=== PATIENT | male | born 1970 | race Caucasian/White ===

== ENCOUNTER 2022-07-27 | Day surgery (SDC) | payer OTHER, SELFPAY ==
[2022-07-09 14:39] VITALS: BMI 28.1
[2022-07-27 11:59] VITALS: BP 114/74; PULSE 57; RESP 16; TEMP 36.3; O2SAT 99; BMI 27.0
[2022-07-27] MEDS: LACTATED RINGERS 1,000 ML 150 ML IV CONT (12:07)
--- NOTE | 2022-07-27 12:08 | WPDANESEPPF ---
Anes - Initial Pre Proc Eval Procedure: Operation Date: 07/27/22 13:30 Proposed Procedures p Screening Colonoscopy - Emory Powell MD Date/Time: 07/27/22 12:08 Surgeon: Emory Powell MD Pre Op Diagnosis: family history of colon cancer Patient Data Age: 52 Gender: M Height: 1.93 m Weight: 100.8 kg Last Vital Signs Temp 36.3 C L 07/27/22 11:59 Pulse 57 L 07/27/22 11:59 Resp 16 07/27/22 11:59 BP 114/74 07/27/22 11:59 Pulse Ox 99 07/27/22 11:59 O2 Del Method Room Air 07/27/22 11:59 Allergies Allergy/AdvReac Type Severity Reaction Status Date / Time No Known Allergies Allergy Verified 07/27/22 11:58 Home Medications Medication Instructions Recorded Confirmed Type dextroamphetamine-amphetamine ER 60 mg PO DAILY 07/09/22 07/27/22 History 30 mg 24hr capsule,extend release (Adderall XR) omeprazole 40 mg capsule,delayed 40 mg PO DAILY 07/09/22 07/27/22 History release Patient hx anesthesia problems: none Family hx anesthesia problems: none Results Review: All pre-operative results and documents have been reviewed as part of the pre-operative evaluation. [facility] Past Medical History Medical History (Updated 07/27/22 @ 12:10 by Emory Powell MD) GERD (gastroesophageal reflux disease) Overweight Social History Social History (System 08/19/20 @ 15:14 by Amado Swift) Smoking packs per day: 1 Smoking cigarettes per day: 20.0 Years smoked: 40 Smoking pack-years: 40.00 Smoking status: Current every day smoker Tobacco type: cigarettes Alcohol intake: never Substance use: never Substance use type: does not use Living arrangements: with family Spiritual care concerns: No Anes - Eval Final PreProcedure Day of Procedure 07/27/22 12:08 Patient weight: normal Heart: regular rate and rhythm Lungs: clear to auscultation Airway: Mallampati scale class 1 Neurological: alert and oriented Last oral intake: >/= 8 hours ASA classification: II Emergent: no Anesthetic plan: proceed Anesthesia type and monitoring: general GIVS and standard monitoring Results Review: All pre-operative results and documents have been reviewed as part of the pre-operative evaluation. Informed Consent: The patient's anesthetic plan and its attendant risks and benefits were discussed with the patient/family/POA. Questions were solicited and answers provided to the satisfaction of the patient/family/POA.
--- NOTE | 2022-07-27 12:09 | PM.HPGS ---
History of Present Illness History of Present Illness Consent: Risks, benefits, and alternatives have been discussed and questions answered. Patient agrees to proceed with procedure. Chief complaint: family history of colon cancer Narrative: Roger Lino is a 52 year old male Presents for screening colonoscopy. Patient's current weight appetite and bowel movements are normal. Patient denies abdominal pain. He has had no bleeding. Family history is Significant that his father had colon cancer. Patient presents today for screening colonoscopy. Review of Systems Review of Systems: Review of systems noncontributory. [facility] Past Medical History Medical History (Updated 07/27/22 @ 12:10 by Emory Powell MD) GERD (gastroesophageal reflux disease) Overweight Social History Social History (System 08/19/20 @ 15:14 by Amado Swift) Smoking packs per day: 1 Smoking cigarettes per day: 20.0 Years smoked: 40 Smoking pack-years: 40.00 Smoking status: Current every day smoker Tobacco type: cigarettes Alcohol intake: never Substance use: never Substance use type: does not use Living arrangements: with family Spiritual care concerns: No Meds Home Medications and Allergies Home Medications Medication Instructions Recorded Confirmed Type dextroamphetamine-amphetamine ER 60 mg PO DAILY 07/09/22 07/27/22 History 30 mg 24hr capsule,extend release (Adderall XR) omeprazole 40 mg capsule,delayed 40 mg PO DAILY 07/09/22 07/27/22 History release Allergies Allergy/AdvReac Type Severity Reaction Status Date / Time No Known Allergies Allergy Verified 07/27/22 11:58 Vital Signs Vital Signs - 24 hr 07/27/22 11:59 Temperature 97.3 F L Pulse Rate 57 L Respiratory Rate 16 Blood Pressure 114/74 Pulse Oximetry 99 Oxygen Delivery Room Air Exam Narrative: Physical exam reveals patient to be alert. Vital signs stable. HEENT exam is unremarkable. Patient is anicteric. Lungs are clear to auscultation and percussion. Heart is without murmur or extra sounds. Abdomen bowel sounds present soft nontender with no organomegaly. Digital external rectal exam is normal. Assessment and Plan Assessment and plan (1) Family history of colon cancer in father: Code(s): Z80.0 - Family history of malignant neoplasm of digestive organs Status: Acute Assessment and Plan: Patient's father had colon cancer. For this reason screening colonoscopy is advised now and consider this at 5 year intervals in the future.
[2022-07-27 13:24] VITALS: BP 114/71; PULSE 66; RESP 18; O2SAT 100
[2022-07-27 13:34] VITALS: BP 133/65; PULSE 71; RESP 21; O2SAT 100
[2022-07-27 13:44] VITALS: BP 121/84; PULSE 54; RESP 19; O2SAT 99
== END 2022-07-27 13:52 | disposition home or self-care (01) ==
PROVIDERS: Visit Provider Internal Medicine Gastroenterology
PROC: 0DJD8ZZ Inspection of Lower Intestinal Tract, Via Natural or Artificial Opening Endoscopic (ICD-10-PCS; CPT 45378; principal; 2022-07-27 13:30)
DX: Z12.11 Encounter for screening for malignant neoplasm of colon (principal); K64.8 Other hemorrhoids; Z80.0 Family history of malignant neoplasm of digestive organs; K21.9 Gastro-esophageal reflux disease without esophagitis; F17.210 Nicotine dependence, cigarettes, uncomplicated
CPT/HCPCS: 45378; J2704; J7120

== ENCOUNTER 2024-08-03 15:54 | Outpatient (CLI) | payer OTHER, SELFPAY ==
--- NOTE | ~2024-08-03 | CT_ITS ---
EXAMINATION: CT lung screening DATE: 08/03/2024 16:19 INDICATION: tobacco use TECHNIQUE: Computed tomography (CT) of the chest was performed without intravenous contrast. Addition al 3D reconstructions utilizing coronal maximum intensity projection (MIP) were performed. Automated exposure control and iterative reconstruction technique were employed. The dose-length product was 17 8.66 mGy-cm. COMPARISON: None FINDINGS: Mild discoid atelectasis in the left lower lobe. There are few small calcified nodules in the right m iddle and lower lobes consistent with old granulomatous disease. No pneumonia, pulmonary edema, pleur al effusion or pneumothorax. Heart size is normal. No pericardial effusion. Thoracic aorta is normal in caliber. No pathologically enlarged thoracic lymphadenopathy. Mild bilateral gynecomastia. Visuali zed upper abdomen is unremarkable. Mild thoracic dextrocurvature with moderate spondylosis. IMPRESSION: 1. Lung-RADS category 1: Negative. Continue annual screening with noncontrast low-dose chest CT in 12 months. Reviewed, dictated and finalized at location A. [employer] IMPRESSION: 1. Lung-RADS category 1: Negative. Continue annual screening with noncontrast l ow-dose chest CT in 12 months.
== END 2024-08-03 15:55 | disposition home or self-care (01) ==
LOC: MICIMG 15:56
PROVIDERS: PCP Family Medicine; Visit Provider Family Medicine
DX: Z12.2 Encounter for screening for malignant neoplasm of respiratory organs (principal); Z87.891 Personal history of nicotine dependence
CPT/HCPCS: 71271

== ENCOUNTER 2025-01-02 00:46 | Day surgery (SDC) | payer OTHER, SELFPAY ==
[2024-12-20 15:20] VITALS: BMI 28.6
--- OUTSIDE RECORDS SUMMARY | 2025-01-02 00:48 | XMS_ITS | Data Portability ---
Author Organization [place] - [facility], Maria A Paige Address [address] [place] [address] Care Team Providers Care Die Cast Die Maker Name Role Phone CHARLES NICOLE Electro Mechanic [phone] Assessment No assessment recorded. Plan of Treatment Reminders Order Date Submit Date Provider Last Modified By Organization Details Last Modified Time Details Appointments InPerson; PE, Routine 2024 03:50P M Melanie Hannon MD Not available Not available Not available Lab unlisted lab - [id number] 2024 025 BENITO [facility] ([place]), [address] [facility], [place], [address], 11/26/2024 00:07:53 PSA, total, serum or plasma 2023 024 BENITO [facility] ([place]), [address] [facility], [place], [address], 05/01/2024 21:08:25 CT + NG RNA, PCR, unspecifi ed specimen 2023 024 COILA [facility] ([place]), [address] [place], [address], 05/01/2024 21:08:24 urinalysi s, dipstick 2023 024 leslie Husain, [address] [place], [address], 04/28/2024 10:58:23 urinalysi s, dipstick 2023 024 [id number] Rodrigue, [address] [facility], [place], [address], 04/20/2024 16:56:42 culture, urine 2023 024 COILA [facility] ([facility], [address] [facility], [place], [address], 04/22/2024 03:09:01 Referral gastroent erologist referral - Refractor y GERD not improving with PPI [address] [facility], [address] [place] [address], [place], [address], 12/18/2024 11:21:05 Procedures None recorded. Surgeries None recorded. Imaging LDCT, chest, for lung cancer screening [address] [facility], [address] [place], [place] [id number], [place], [address], 08/09/2024 16:57:32 LDCT, chest, for lung cancer screening 2023 024 [email or web address] [facility], [address] Argentina Gimenez, [facility] [address], [place], [address], 07/28/2024 10:38:37 Medication Orders pantopraz ole 40 mg tablet,de layed release 2024 025 [id number], [address] [place], [place], [id number], 11/22/2024 17:17:42 tamsulosi n 0.4 mg capsule 2023 024 [facility] #73387, [address] [place], [place], [id number], 07/26/2024 17:20:51 ciproflox acin 500 mg tablet 2023 024 [facility] #11488, [address] [facility], [place], [place], [id number], 04/27/2024 16:37:04 Adderall XR 20 mg capsule,e xtended release 2023 0807 024 COILA [id number], [address] [facility], [place], [place], [id number], 03/29/2024 16:17:02 Patient TargetsNo targets recorded. Patient Instructions Encounter Date Encounter Id Patient Instructions Last Modified By Organization Details Last Modified Time 07/26/2024 [id number] smoking cessatio n counseling, greater than 3 minutes up to 10 minutes* [email or web address] Not available 07/26/2024 17:20:47 11/22/2024 [id number] smoking cessatio n counseling, greater than 3 minutes up to 10 minutes* [email or web address] Not available 11/29/2024 13:17:54 Reason for Referral Electro Mechanic Referral for Gastroesophageal reflux disease Refractory GERD not improving with PPI Referring Physician: Melanie Hannon, Family Medicine, Encounter Date: 11/22/2024 Results Created Date Observation Date Name Description Value Unit Range Abnormal Flag Note LastModifiedBy Organization Detail LastModifiedTime 04/20/2004/22/2024 URINE CULTU RE, ROUTI NE urine culture, routine Final report Not Available [facility] ([facility]) [address] [place], [address], 04/22/2024 03:09:01 04/20/20 24 04/22/2024 URINE CULTU RE, ROUTI NE result 1 COMMEN T Cultu re shows less than 10,00 0 colon y formi ng units of bacte jah per margret liter of urine . This colon y count is not gener ally consi dered to be clini wendy signi ficbelinda t. Not Available [facility] ([facility]) [address] [place], [address], 04/22/2024 03:09:01 04/21/20 24 04/21/2024 urina lysis , dipst ick Color Yellow Not Available Director Phone [address] [place] [address], [address], 04/20/2024 09:23:10 04/21/20 24 04/21/2024 urina lysis , dipst ick Appearance Hazy Not Available [facility] [address] [place] [address], [phone], 04/20/2024 09:23:10 04/21/20 24 04/21/2024 urina lysis , dipst ick Leukocytes negati ve Not Available Director Phone [address] [place] [address], [address], 04/20/2024 09:23:10 04/21/20 24 04/21/2024 urina lysis , dipst ick Nitrites negati ve Not Available Director Phone [address] [place] [address], [phone], 04/20/2024 09:23:10 04/21/20 24 04/21/2024 urina lysis , dipst ick Urobilinogen Normal (0.2) Not Available Director Phone [address] [place] [address], [address], 04/20/2024 09:23:10 04/21/20 24 04/21/2024 urina lysis , dipst ick Protein trace/ 10 Not Available Director Phone [address] [place] [address], [phone], 04/20/2024 09:23:10 04/21/20 24 04/21/2024 urina lysis , dipst ick pH 6.5 Not Available Director Phone [address] [place] [address], [phone], 04/20/2024 09:23:10 04/21/20 24 04/21/2024 urina lysis , dipst ick Blood trace Not Available Director Phone [address] [place] [address], [phone], 04/20/2024 09:23:10 04/21/20 24 04/21/2024 urina lysis , dipst ick Specific Fairlee 1.025 Not Available [facility] [address] [place], [address], 04/20/2024 09:23:10 04/21/20 24 04/21/2024 urina lysis , dipst ick Ketone negati ve Not Available Director Phone [address] [place] [address], [phone], 04/20/2024 09:23:10 04/21/20 24 04/21/2024 urina lysis , dipst ick Bilirubin negati ve Not Available Director Phone [address] [place] [address], [phone], 04/20/2024 09:23:10 04/21/20 24 04/21/2024 urina lysis , dipst ick Glucose negati ve Not Available Director Phone [address] [place] [address], [phone], 04/20/2024 09:23:10 04/28/20 24 05/01/2024 CHLAM YDIA/ GC AMPLI FICAT ION chlamydia trachomatis, JESSE Negati ve negati ve Not Available [facility] ([facility]) [address] [place], [address], 05/01/2024 21:08:24 04/28/20 24 05/01/2024 CHLAM YDIA/ GC AMPLI FICAT ION neisseria gonorrhoeae, JESSE Negati ve negati ve Not Available [facility] ([facility]) [address] [place], [address], 05/01/2024 21:08:24 04/28/20 24 04/29/2024 PROST ATE-S PECIF IC AG prostate specific Ag 0.5 NG/mL 0.0-4. 0 normal Xavier ECLIA metho dolog y. Accor ding to the Ameri can Urolo gical Assoc iatio n, Serum PSA shoul d decre ase and remai n at undet ectab le level s after radic al prost atect crissy. The AUA defin es bioch emica l recur rence as an initi al PSA value 0.2 ng/mL or great er follo wed by a subse quent confi rmato ry PSA value 0.2 ng/mL or great er. Value s obtai jean-paul with diffe rent assay metho ds or kits canno t be used inter blair eably . Resul ts canno t be inter prete d as absol kweth[place]uk evide nce of the prese nce or absen ce of [facility] se. Not Available [facility] ([facility]) [address] [facility], [place], [address], 05/01/2024 21:08:25 04/28/20 24 04/28/2024 urina lysis , dipst ick Color Yellow Not Available Director Phone [address] [place] [address], [phone], 04/28/2024 10:32:55 04/28/20 24 04/28/2024 urina lysis , dipst ick Appearance Clear Not Available [employer] [address] [place] [address], [phone], 04/28/2024 10:32:55 04/28/20 24 04/28/2024 urina lysis , dipst ick Leukocytes negati ve Not Available Director Phone [address] [place] [address], [phone], 04/28/2024 10:32:55 04/28/20 24 04/28/2024 urina lysis , dipst ick Nitrites negati ve Not Available Director Phone [address] [place] [address], [phone], 04/28/2024 10:32:55 04/28/20 24 04/28/2024 urina lysis , dipst ick Urobilinogen Normal (0.2) Not Available Director Phone [address] [place] [address] [place], [address], 04/28/2024 10:32:55 04/28/20 24 04/28/2024 urina lysis , dipst ick Protein negati ve Not Available Director Phone [address] [facility], [place], [address], 04/28/2024 10:32:55 04/28/20 24 04/28/2024 urina lysis , dipst ick pH 6 Not Available Director Phone [address] [facility], [place], [address], 04/28/2024 10:32:55 04/28/20 24 04/28/2024 urina lysis , dipst ick Blood negati ve Not Available Director Phone [address] [place], [address], 04/28/2024 10:32:55 04/28/20 24 04/28/2024 urina lysis , dipst ick Specific Fairlee 1.030 Not Available [employer] [address] [place] [address], [phone], 04/28/2024 10:32:55 04/28/20 24 04/28/2024 urina lysis , dipst ick Ketone negati ve Not Available Director Phone [address] [facility], [place], [address], 04/28/2024 10:32:55 04/28/20 24 04/28/2024 urina lysis , dipst ick Bilirubin negati ve Not Available Director Phone [address] [facility], [place], [address], 04/28/2024 10:32:55 04/28/20 24 04/28/2024 urina lysis , dipst ick Glucose negati ve Not Available Director Phone [address] [place], [address], 04/28/2024 10:32:55 11/23/19 25 11/23/2024 [id number] 6 U14-U NBUND +SV2 amphetamines screen, urine See Final Result s NG/mL cutoff =500 Amphe tamin e test inclu murphy Amphe tamin e and Metha mphet amine . Not Available [facility] ([facility]) [address] [facility], [place], [address], 11/26/2024 00:07:52 11/23/19 25 11/23/2024 20943 6 U14-U NBUND +SV2 barbiturates Negati ve NG/mL cutoff =200 Not Available [facility] ([facility]) [address] [place], [address], 11/26/2024 00:07:52 11/23/19 25 11/23/2024 27640 6 U14-U NBUND +SV2 benzodiazepi jayy Negati ve NG/mL cutoff =200 Not Available [facility] ([facility]) [address] [place], [address], 11/26/2024 00:07:52 11/23/19 25 11/23/2024 [id number] 6 U14-U NBUND +SV2 cannabinoid Negati ve NG/mL cutoff =20 Not Available [facility] ([facility]) [address] [facility], [place], [address], 11/26/2024 00:07:52 11/23/19 25 11/23/2024 [id number] 6 U14-U NBUND +SV2 cocaine (metab.), urine Negati ve NG/mL cutoff =150 Not Available [facility] ([facility]) [address] [place], [address], 11/26/2024 00:07:52 11/23/19 25 11/23/2024 [id number] 6 U14-U NBUND +SV2 opiates Negati ve NG/mL cutoff =300 Opiat e test inclu murphy Codei ne, Morph ine, [place] morph one, [place] codon e. Not Available [facility] ([facility]) [address] [place], [address], 11/26/2024 00:07:52 11/23/19 25 11/23/2024 [id number] 6 U14-U NBUND +SV2 6-acetylmorp luther, urine Negati ve NG/mL cutoff =10 Not Available [facility] ([facility]) [address] [place], [address], 11/26/2024 00:07:52 11/23/19 25 11/23/2024 [id number] 6 U14-U NBUND +SV2 oxycodone/ox ymorphone, urine Negati ve NG/mL cutoff =100 Test inclu murphy Oxyco done and Oxymo rphon e Not Available [facility] ([facility]) [address] [place], [address], 11/26/2024 00:07:52 11/23/19 25 11/23/2024 11679 6 U14-U NBUND +SV2 pcp, urine Negati ve NG/mL cutoff =25 Not Available [facility] ([facility]) [address] [place], [address], 11/26/2024 00:07:52 11/23/19 25 11/23/2024 [id number] 6 U14-U NBUND +SV2 methadone screen, urine Negati ve NG/mL cutoff =300 Not Available [facility] ([facility]) [address] [place], [address], 11/26/2024 00:07:52 11/23/19 25 11/23/2024 [id number] 6 U14-U NBUND +SV2 propoxyphene , urine Negati ve NG/mL cutoff =300 Not Available [facility] ([facility]) [address] [place], [address], 11/26/2024 00:07:52 11/23/19 25 11/23/2024 19428 6 U14-U NBUND +SV2 fentanyl, urine Negati ve NG/mL cutoff =2.0 Test inclu murphy Fenta nyl and Norfe ntany l This test was devel oped and its perfo rmanc e reji cteri stics deter mined by [facility]. It has not been clear ed or appro ameya by the Food and Drug Admin istra tion. Not Available [facility] ([facility]) [address] [place], [address], 11/26/2024 00:07:52 11/23/19 25 11/23/2024 28013 6 U14-U NBUND +SV2 tramadol Negati ve NG/mL cutoff =200 Not Available [facility] ([facility]) [address] [place], [address], 11/26/2024 00:07:52 11/23/19 25 11/23/2024 [id number] 6 U14-U NBUND +SV2 buprenorphin e, urine Negati ve NG/mL cutoff =10 Not Available [facility] ([facility]) [address] [place], [address], 11/26/2024 00:07:52 11/23/19 25 11/23/2024 56728 6 U14-U NBUND +SV2 creatinine, urine 70.9 mg/dL 20.0-3 00.0 Not Available [facility] ([facility]) [address] [place], [address], 11/26/2024 00:07:52 11/23/19 25 11/23/2024 10540 6 U14-U NBUND +SV2 pH, urine 6.1 4.5-8. 9 Not Available [facility] ([facility]) [address] [place], [address], 11/26/2024 00:07:52 11/23/19 25 11/25/2024 42399 6 U14-U NBUND +SV2 amphetamines Positi ve cutoff =500 abnormal Amphe tamin e test inclu murphy Amphe tamin e and Metha mphet amine . Not Available [facility] ([facility]) [address] [facility], [place], [address], 11/26/2024 00:07:52 11/23/19 25 11/25/2024 73622 6 U14-U NBUND +SV2 amphetamine Positi ve abnormal Not Available [facility] ([facility]) [address] [facility], [place], [address], 11/26/2024 00:07:52 11/23/19 25 11/25/2024 71892 6 U14-U NBUND +SV2 amphetamine conf, MS, ur >3000 NG/mL cutoff =250 Not Available [facility] ([facility]) [address] [place], [address], 11/26/2024 00:07:52 11/23/19 25 11/25/2024 94505 6 U14-U NBUND +SV2 methamphetam ine Negati ve cutoff =250 Not Available [facility] ([facility]) [address] [facility], [place], [address], 11/26/2024 00:07:52 08/04/20 24 08/03/2024 LDCT, chest , for lung cance r scree margaux No observ ation record ed. ttrost [facility] [address], [place], [address], 08/04/2024 13:20:32 Result Notes None recorded. Problems Name Problem SNOMED Code Status Onset Date Resolution Date Notes Provider Name and Address Organization Details Recorded Time Attentio n deficit hyperact ivity disorder 996343717 Active 2023 Adela Potts NP [address], [facility] [place], [address] , [place] [facility] 23:30:52 Family history of cancer of colon 912409214 Active 2023 Adela Potts NP [address], [place], [address] , [place] [facility] 4 23:31:08 Pain of knee region 5957562568 Active 2023 Adela Potts NP [address], [place], [address] , [place] - [facility] 4 23:31:21 Meralgia paresthe emily 50661513 Active 2023 Adela Potts NP [address], [place], [address] , [place] - [facility] 4 23:31:32 Obesity 599941875 Active 2023 Adela Potts NP [address], [place], [address] , [place] - [facility] 4 23:31:41 Skin pigmenta tion 777801445 Active 2023 Adela Potts NP [address], [place], [address] , [place] - [facility] 4 23:33:08 Pain of shoulder region 69845776 Active 2023 Adela Potts NP [address], [place], [address] , [place] - [facility] 4 23:33:16 Tobacco user 826245349 Active 2023 Adela Potts NP [address], [place], [address] , [place] - [facility] 4 23:33:28 Hyperlip idemia 56982056 Active Melanie Hannon MD [address], [place], [address] , [place] - [facility] 4 12:43:28 Attentio n deficit hyperact ivity disorder 566688153 Completed 202112/09/2023 ADHD - Attentio n deficit disorder with hyperact ivity; PROBABIL ITY: 0 Confir mation: Confirme d Annota tedDispl ay: ADHD - Attentio n deficit disorder with hyperact ivity Cl assifica tion: Medical Attentio n deficit hyperact ivity disorder ; PROBABIL ITY: 0 SENSIT IVITY: 0.0 Conf irmation : Confirme d Annota tedDispl ay: ADHD Cla ssificat ion: Medical Lifecycl eDateTim e: 15:46:31 +00:00 Not Available [facility] 4 18:34:37 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 Procedures Surgical History Date Name Laterality Status Provider Name and Address Organization Details Recorded Time screening colonoscopy completed Karen An [place] [facility] 04/27/2024 16:39:17 Imaging Results Imaging Date Name Status LastModified by Organiz ation Details LastModified Time 08/03/2024 LDCT, chest, for lung cancer screening completed [facility] [address] [facility], [place], [address], 08/04/2024 13:20:32 Procedure Notes None recorded. Medical Equipment None Reported. Allergies Allergen ID Allergen Name Allergen Category Reaction Reaction Severity Criticality Documentation Date Start Date Code Code System Note Provider Name and Address Organization Details Recorded Time 806444 No Allergy Informati on Available Not available Not available Not available Not available 12/09/2023 62301 UNK Comme nt: React ion Class : Aller gy; Karen joya, [place] [facility] 4 20:56:56 No known drug allergies Medications Name Sig Start Date Stop Date Status Note LastModified by Organization Details LastModified Time amoxicill in 500 mg capsule 10/20 completed Not Available Not Available Not Available ciproflox acin 500 mg tablet Take 1 tablet every day by oral route for 3 days, for urinary issues. 04/27 completed Not Available Not Available Not Available omeprazol e 40 mg capsule,d elayed release TAKE 1 CAPSULE BY MOUTH DAILY active Not Available Not Available No t Available tamsulosi n 0.4 mg capsule TAKE 1 CAPSULE BY MOUTH EVERY DAY FOR PROSTATE active Not Available Not Available No t Available dextroamp hetamine- amphetami ne ER 20 mg 24hr capsule,e xtend release TAKE 2 CAPSULES BY MOUTH EVERY DAY active Not Available Not Available No t Available cephalexi n 500 mg capsule TAKE 1 CAPSULE BY MOUTH EVERY 6 HOURS UNTIL GONE 01/04 completed Not Available Not Available Not Available pantopraz ole 40 mg tablet,de layed release TAKE 1 TABLET BY MOUTH EVERY DAY FOR GERD OR HEARTBUR N active Not Available Not Available No t Available dextroamp hetamine- amphetami ne ER 30 mg 24hr capsule,e xtend release TAKE 1 CAPSULE BY MOUTH EVERY DAY FOR ADHD 05/03 completed Not Available Not Available Not Available varenicli ne tartrate 0.5 mg (11)-1 mg (42) tablets in a dose pack FOLLOW PACKAGE DIRECTIO NS 01/04 completed Not Available Not Available Not Available dexmethyl phenidate ER 40 mg capsule,e xtended release biphasic5 0-50 TAKE 1 CAPSULE BY MOUTH EVERY DAY FOR ADHD 03/29 completed Not Available Not Available Not Available pneumococ rudi 15-valent conj vaccine-d ip crm (PF) 0.5 mL IM syringe 04/13 completed StopType : Physicia n Stop Jarrett gIdentif icationN umber: [id number] N extDoseD ate: 2 10:14:00 AM Const antIndic ator: No CSASc hedule: 0 active _status_ dt_tm: 2 10:33:35 AM Not Available Not Available Not Available Vitals Date Recorded Body height Body mass index (BMI) Body weight Oxygen saturation Oxygen saturation in Arterial blood by Pulse oximetry Body temperature Heart rate Systolic blood pressure Diastolic blood pressure Provider Name and Address Organization Details Last Updated DateTime 4 193.04 cm 27.3 kg/m2 789842. 69 g 95 % 95 % 98.7 [degF] 71 /min 112 mm[Hg] 68 mm[Hg] Reema Gege [place] [facility] 4 15:50:11 Date Recorded Body height Body mass index (BMI) Body weight Body temperature Oxygen saturation Oxygen saturation in Arterial blood by Pulse oximetry Heart rate Systolic blood pressure Diastolic blood pressure Provider Name and Address Organization Details Last Updated DateTime 4 193.04 cm 27.5 kg/m2 787150. 88 g 98.1 [degF] 97 % 97 % 75 /min 117 mm[Hg] 75 mm[Hg] Maddie Mcgarry [place] [facility] 4 08:49:07 Date Recorded Body height Body mass index (BMI) Body weight Body temperature Oxygen saturation Oxygen saturation in Arterial blood by Pulse oximetry Heart rate Systolic blood pressure Diastolic blood pressure Provider Name and Address Organization Details Last Updated DateTime 4 193.04 cm 28 kg/m2 275593. 53 g 98.6 [degF] 98 % 98 % 77 /min 126 mm[Hg] 80 mm[Hg] Karen An [place] [facility] 4 10:22:26 Date Recorded Body height Body mass index (BMI) Body weight Body temperature Oxygen saturation Oxygen saturation in Arterial blood by Pulse oximetry Heart rate Systolic blood pressure Diastolic blood pressure Provider Name and Address Organization Details Last Updated DateTime 4 193.04 cm 27.6 kg/m2 933253. 47 g 97.8 [degF] 100 % 100 % 65 /min 130 mm[Hg] 74 mm[Hg] Lynnette Peterson [place] [facility] 4 17:10:14 Date Recorded Body height Body mass index (BMI) Body weight Body temperature Oxygen saturation Oxygen saturation in Arterial blood by Pulse oximetry Heart rate Systolic blood pressure Diastolic blood pressure Provider Name and Address Organization Details Last Updated DateTime 5 193.04 cm 28.4 kg/m2 333420. 02 g 98.5 [degF] 99 % 99 % 68 /min 121 mm[Hg] 70 mm[Hg] Melissabetty Peterson [place] [facility] 5 16:53:49 Social History Question Answer Notes LastModified by Organizat ion Details LastModified Time Tobacco Smoking Status Current Every Day Smoker Adela Potts NP [address], [place], [address], [place] [facility] 09/19/2023 23:40:04 What Is Your Level Of Caffeine Consumption? Moderate Information not available 07/26/2024 How Much Tobacco Do You Chew? None [email or web address] Information not available 07/26/2024 In The 14 Days Before Symptom Onset, Have You Had Close Contact With A Laboratory-confi rmed COVID-19 While That Case Was Ill? No Information not available 10/06/2023 Have You Been To An Area Known To Be High Risk For COVID-19? No [email or web address] Information not available 10/06/2023 What Is The Highest Grade Or Level Of School You Have Completed Or The Highest Degree You Have Received? [id number] [email or web address] Information not available 07/26/2024 Cigar Smoking No Information not available 03/26/2024 Lives With [email or web address] Information no t available 03/26/2024 Have You Ever Served In The ? Yes [email or web address] Information not available 07/26/2024 What Was The Date Of Your Most Recent Tobacco Screening? 07/25/2024 [email or web address] Information not available 07/26/2024 What Is Your Current Pack Years? [email or web address] years Information not available 03/25/2024 What Is Your Relationship Status? [email or web address] Information not available 03/26/2024 Are You Passively Exposed To Smoke? Yes Quit Smoking 2020 [email or web address] Information not available 03/26/2024 How Much Tobacco Do You Smoke? 1 PPD Unknown Years Information not available 09/19/2023 How Many Years Have You Smoked Tobacco? 40 [email or web address] Information not available 07/26/2024 Sex: Unknown Functional Status Question Answer Note LastModified by Organizat ion Details LastModified Time Do you or have you ever used any other forms of tobacco or nicotine? No Information not available 09/19/2023 What is your level of alcohol consumption? Occasional beer:1-2 xyear Information not available 09/19/2023 Are you currently employed? 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 Family History Relationship Description Onset Age of this Age Resolved Age Notes LastModified by Organization Details LastModified Time Mother Parkinson's disease [email or web address] Not available 2023 17:02:44 Father Family history of cancer of colon eleinicke Not available 2023 17:02:44 Father Malignant tumor of colon [email or web address] Not available 2023 08:45:51 Father Carcinoma in situ of prostate eleinicke Not available 2023 17:02:44 Medical History No medical history recorded. Immunizations Vaccine Type Date Status Note Provider Nam e and Address Organization Details Recorded Time Tdap 7 completed Adela Potts NP [address], [place], [address], [place] [facility] 09/19/2023 23:35:35 SARS-COV-2 (COVID-19) vaccine, UNSPECIFIED 1 completed Adela Potts NP [address], [place], [address], [place] [facility] 09/19/2023 23:35:58 SARS-COV-2 (COVID-19) vaccine, UNSPECIFIED 1 completed Adela Potts NP [address], [place], [address], [place] [facility] 09/19/2023 23:36:05 SARS-COV-2 (COVID-19) vaccine, UNSPECIFIED 1 completed Adela Potts NP [address], [place], [address], [place] [facility] 09/19/2023 23:36:17 Pneumococcal conjugate PCV15, polysaccharide WMR452 conjugate, adjuvant, PF 2 completed Adela Potts NP [address], [place], [address], [facility] 09/19/2023 23:36:44 zoster, unspecified formulation 2 completed Adela Potts NP [address], [place], [address], [place] [facility] 09/19/2023 23:37:09 zoster, unspecified formulation 2 completed Not Available [facility] 12/09/2023 18:03:39 Td(adult) unspecified formulation 7 completed Not Available [facility] 12/09/2023 18:03:39 influenza, unspecified formulation 2 completed Not Available [facility] 12/09/2023 18:03:39 Tdap 4 completed Reema De Guzman null, [place] - [facility] 02/23/2024 12:05:41 pneumococcal polysaccharide PPV23 4 completed Yesenia Olguin null, [place] - [facility] 10/06/2023 18:10:26 Influenza, split virus, trivalent, PF 4 completed Melanie Hannon MD [address], [place], [address], [place] - [facility] 07/26/2024 17:26:20 Past Encounters Encounter ID Performer Location Encounter Start Date Encounter Closed Date Diagnosis/Indication Diagnosis SNOMED-CT Code Diagnosis ICD10 Code Diagnosis Note [id number] Melanie Hannon MD [address] [place] [address] 10/06/2023 16:57:33 10/14/2023 06:33:23 Adult health examination 744788568 Z00.00 We discussed healthy diet and exercise.V accines UTDColonos copy UTDLabs as below Family his tory of cancer of colon 521344169 Z80.0 Colonosocp y UTD Tobacco user 634692151 Z 72.0 He is interested in cessation so we discussed options. He would like to try chantix after discussion of risk/benef it/side effect.Due for CT scan, this is ordered.Patel ibarra for PSV23, this is done today Chest pain 34190377 R07. 9 Etiology elusive. Consider neurogenic - XR pending and f/u if symptoms worsen or fail to improve. Injury of muscle and tendon at forearm level 947479543 S56.901D [facility] location closed so when calling with results will find another [place] location for him to return to PT. F/u tbd on resuls and symptoms [id number] MD Doug [address] [place] [address] 10/22/2023 12:07:21 10/30/2023 06:32:18 Tobacco user 223340027 Z72.0 He will try chantix when he's readyCT ordered - gave him number to call to schedule Chest pain 83482730 R07. 9 Etiology elusive, but with ?neurogeni c component and some disc disease on XR, refer to PT if symptoms flare again Injury of muscle and tendon at forearm level 677671928 S56.901D [facility] [facility] [place] ve him number to call to schedule Attention deficit hyperactivity disorder 205939285 F90.9 He will submit SAMEER for psychiatry office and f/u here to ensure we receive records.Du fred to mario robbins, I can provide a refill in the intrim if records take time to arrive F/u in March for physical, sooner if needed [id number] MD Doug [address] [place] [address] 01/05/2024 15:23:29 01/06/2024 09:49:08 Attention deficit hyperactivity disorder 390463694 F90.9 Focalin for this month to avoid disruption of med. Then switch to Adderall with next fill - 30mg dose.F/u in March when due for physical (or sooner if needed)Pha rmacy records reviewed (PDMP not available - another state)Cont rolled substance agreement signed today [id number] MD Doug [address] [place] [address] 02/23/2024 12:02:22 02/25/2024 08:43:38 Left-sided piriformis syndrome [id number] 96647 M54.32 Gave home exercises. Call or f/u if symptoms worsen or fail to improve as expected. Could consider PT if needed. Due for physical soon [id number] MD Doug [address] [place] [address] 03/29/2024 15:32:38 03/30/2024 09:39:07 Attention deficit hyperactivity disorder 142055724 F90.9 Continue adderall; discussed increasing risk of medication with age and with desire for frequent medication changes; may end up needing to refer back to psychiatry . Will do trial on 40mg dose and follow closely Family his tory of cancer of colon 036671913 Z80.0 Colonosocp y UTD Tobacco user 481749668 Z 72.0 Not yet ready for cessation, but has chantix for if/when he's ready to beginPCV vaccinatio n doneIs due for CT screening so this is ordered f/u in 4 mo for ADHD, sooner if needed Adult heal th examination 535937188 Z00.00 We discussed healthy diet and exercise.V accines UTDColonos copy UTDLabs as below [id number] MD Doug Gray [address] [place] [address] 04/20/2024 08:43:41 04/25/2024 17:35:52 Increased frequency of urination 469074723 R35.0 Patient is unable to provide a urine sample at this time.Speci men cup provided to patient with instructio ns on collection and returning the sample to the office for testing.Kamron olmstead returned with sample -urine dipstick reviewed, urine culture ordered, and ciprofloxa selam 500 mg daily x3 days prescribed Call if not improving [id number] MD Ana Hardwickenter s [address] [place] [address] 04/28/2024 10:10:56 05/02/2024 19:07:09 Increased frequency of urination 710399647 R35.0 LIkely BPH, but will repeat PSA and STD screen to ensure benign etiology. Discussed medication s options to consider but would wait to see if symptoms continue to improve as they are currently [id number] MD Ana Hardwickenter s [address] [place] [address] 07/26/2024 17:01:05 07/28/2024 15:52:03 Attention deficit hyperactivity disorder 404352085 F90.9 Well-contr olled on adderall 40mg. Administra tion of influenza vaccine 60729446 Z23 Tobacco user 045373301 Z 72.0 Not yet ready for cessation, but has chantix for if/when he's ready to beginPCV vaccinatio n doneIs due for CT screening so this is ordered Benign pro static hyperplasia 972079564 N40.0 Begin flomax after discussion of risk/benef it/side effect. F/u in 3-4 mo for ADHD, sooner if needed [id number] Melanie Hannon MD [address] [place] [address] 11/22/2024 16:35:30 11/23/2024 10:42:43 Attention deficit hyperactivity disorder 731888211 F90.9 Well-contr olled on adderall 40mg. Tobacco user 371338078 Z 72.0 Not yet ready for cessation, but has chantix for if/when he's ready to beginPCV vaccinatio n doneScreen ing CT done 07/2024 Benign pro static hyperplasia 403753800 N40.0 Doing well on flomax; continue this F/u in March for physical - sooner if needed Gastroesop hageal reflux disease 684194073 K21.9 Not improving with regular use of omeprazole . Change to pantoprazo le and refer to GI to consider EGD Health see sohan behavior 211783921 Z76.89 Health Concerns Section Related Observation LastModified by Organization Detai ls LastModified Time None Recorded Concern Status LastModified by Organization Details LastModified Time None Recorded Advance Directives Directive None Recorded Payers Insurance Date Sequence Insurance Name Policy Number Policy Abarca Covered Member ID Abarca Member ID Guarantor Name 11/21/2024 1 [facility] [id number] Roger Alvaradoons [id number] Roger Lino 07/26/2024 1 [facility] ALL PLANS [id number] Roger Lino [id number] Roger Lino Notes Date Note Type Note Provider Name and Address Organization Details Recorded Time 03/29/2024 text/html 54yo male here f or physicalCurrent concerns include --ADHD - Recently changed from focalin to adderall. Now wanting to increase adderall dosage. and job report that symptoms are not well controlled.Previously followed by psychiatry, but that recently so transferred care here.He goes back and forth a lot between adderall, focalin, occasionally concerta.Denies side effects - no palpitations, no insomnia, appetite is normal.Has been on meds for about 30 years. --Smoking cessation - He is actually deciding that he's not quite ready to quit. Has not started the chantix, but has it if he wants. --Wrist pain - referred to PT - [facility] [place] then [facility] after [facility] closed Smokes 1 PPD since age 11. Wants to quit - used chantix. PCV vaccines doneScreening chest CT 07/2022. He is due for this againAlcohol: RareDiet: Varied, not much fruit/vegExercise: walking nightly with his wifeWork: carpenter wooden tank erecting - foremanLives with: Colonoscopy 07/2022Tdap: 2017Shingrix: Done Melanie Hannon MD [address], [place], [address], [place] [facility] 03/29/2024 16:22:27 04/20/2024 text/html 54 y/o male pres ents today withcomplaints of urinary frequency for the past week. States it started at night only but has worsen to throughout the day. Sometimes he only urinate a little and/or have difficulty starting his stream. Denies dysuria, hematuria, nausea, vomiting, abdominal pain, and flank pain. No concerns for STIs. Cathy Tanner NP [address], [place], [address], [place] [facility] 04/20/2024 17:03:07 04/28/2024 text/html 54 y/o male here to follow up on urinary frequency for the past 3 weeks or so.Some hesitancy, sometimes small volume.UA was remarkable for hematuria, culture was negative.Does have sensation of hesitancy, incomplete emptying. Split stream, weak stream, dribbling.Denies dysuria, hematuria, nausea, vomiting, abdominal pain, and flank pain. No concerns for STIs. This is actually starting to improve. But new family history of prostate cancer in father PSA was negative 6 months ago Melanie Hannon MD [address], [place], [address], [place] [facility] 04/28/2024 10:58:32 07/26/2024 text/html 54 y/o male here to follow up on --BPH - labs recently normal. Discussed medication optionsDoes have new family h/o prostate cancer --ADHD - Adderall dose increased from 20mg to 40mg. He's tolerating this well.Previously on focalin.Previously followed by psychiatry, but that MD recently so transferred care here.He goes back and forth a lot between adderall, focalin, occasionally concerta.Denies side effects - no palpitations, no insomnia, appetite is normal.Has been on meds for about [address] was scheduled but the facility cancelled it. He'd like to go elsewhere. He'll drive to [place]. Not yet ready to quit smoking, but does still have chantix at home Melanie Hannon MD [address], [place], [address], [place] - [facility] 07/26/2024 17:27:56 11/22/2024 text/html 54 y/o male here to follow up on --Heartburn - bothering him again - lots of reflux. --BPH - labs recently normal.Started flomax last visit and this is helping.Does have new family h/o prostate cancer --ADHD - Adderall dose increased from 20mg to 40mg. He's tolerating this well.Previously on focalin. Did take meds today.Previously followed by psychiatry, but that MD recently so transferred care here.He goes back and forth a lot between adderall, focalin, occasionally concerta.Denies side effects - no palpitations, no insomnia, appetite is normal.Has been on meds for about 30 years.CSA signed UE UDS --Smoker - not currently interested in cessation.LDCT done 07/2024; due repeat in 1 year Melanie Hannon MD [address], [place], [address], [place] - [facility] 11/22/2024 17:41:41
[2025-01-02 07:23] VITALS: BP 110/66; PULSE 50; RESP 16; TEMP 36.1; O2SAT 100; BMI 28.1
[2025-01-02] MEDS: LACTATED RINGERS 1,000 ML 150 ML IV CONT (07:35)
--- NOTE | 2025-01-02 08:17 | PM.HPGS ---
History of Present Illness History of Present Illness Consent: Risks, benefits, and alternatives have been discussed and questions answered. Patient agrees to proceed with procedure. Chief complaint: GERD Narrative: Roger Lino is a 54 year old male here for first egd, more gerd symptoms using ppi Review of Systems Review of Systems: All systems reviewed & are unremarkable except as noted in HPI and below PMFSH Past Medical History Medical History (Updated 11/29/24 @ 15:49 by Orion Kamara MD) GERD (gastroesophageal reflux disease) Overweight Social History Social History Smoking packs per day: 1 Smoking cigarettes per day: 20.0 Years smoked: 40 Smoking pack-years: 40.00 Smoking status: Current every day smoker Tobacco type: cigarettes Alcohol intake: never Substance use: never Substance use type: does not use Living arrangements: with family Spiritual care concerns: No Meds Home Medications and Allergies Home Medications ?Medication ?Instructions ?Recorded ?Confirmed ?Type dextroamphetamine-amphetamine ER 60 mg PO DAILY 07/09/22 12/20/24 History 30 mg 24hr capsule,extend release (Adderall XR) omeprazole 40 mg capsule,delayed 40 mg PO DAILY 07/09/22 12/20/24 History release tamsulosin 0.4 mg capsule 0.4 mg PO Q24H 12/20/24 12/20/24 History Allergies Allergy/AdvReac Type Severity Reaction Status Date / Time No Known Allergies Allergy Verified 01/02/25 07:22 Vital Signs Vital Signs - 24 hr 01/02/25 07:23 Temperature 97 F L Pulse Rate 50 L Respiratory Rate 16 Blood Pressure 110/66 Pulse Oximetry 100 Oxygen Delivery Room Air Exam Const: General: comfortable and no acute distress HENMT: Face/Nose/Sinus: Normal nares present Eyes: General: appearance normal, both eyes and all related structures Neck: Neck: no JVD Resp: Auscultation: clear to auscultation bilaterally Cardio: Rate: regular rate Rhythm: regular rhythm GI: Inspection: non-distended GI Palp: Yes Soft to palpation Skin: General skin exam: normal color Neuro: Speech: normal speech Extrem: General: normal to inspection Psych: Mental Status: mental status grossly normal Assessment and Plan Assessment and plan (1) GERD (gastroesophageal reflux disease): Code(s): K21.9 - Gastro-esophageal reflux disease without esophagitis Status: Acute Assessment and Plan: egd with bx
--- NOTE | 2025-01-02 08:35 | WPDANESEPPF ---
Anes - Initial Pre Proc Eval Procedure: Operation Date: 01/02/25 08:15 Proposed Procedures p Esophagogastroduodenoscopy - Orion Kamara MD Date/Time: 01/02/25 08:35 Surgeon: Orion Kamara MD Pre Op Diagnosis: GERD Patient Data Age: 54 Gender: M Height: 1.93 m Weight: 104.8 kg Last Vital Signs Temp 36.1 C L 01/02/25 07:23 Pulse 50 L 01/02/25 07:23 Resp 16 01/02/25 07:23 BP 110/66 01/02/25 07:23 Pulse Ox 100 01/02/25 07:23 O2 Del Method Room Air 01/02/25 07:23 Allergies Allergy/AdvReac Type Severity Reaction Status Date / Time No Known Allergies Allergy Verified 01/02/25 07:22 Home Medications ?Medication ?Instructions ?Recorded ?Confirmed ?Type dextroamphetamine-amphetamine ER 60 mg PO DAILY 07/09/22 12/20/24 History 30 mg 24hr capsule,extend release (Adderall XR) omeprazole 40 mg capsule,delayed 40 mg PO DAILY 07/09/22 12/20/24 History release tamsulosin 0.4 mg capsule 0.4 mg PO Q24H 12/20/24 12/20/24 History Patient hx anesthesia problems: none Family hx anesthesia problems: none Results Review: All pre-operative results and documents have been reviewed as part of the pre-operative evaluation. [facility] Past Medical History Medical History GERD (gastroesophageal reflux disease) Overweight Social History Social History Smoking packs per day: 1 Smoking cigarettes per day: 20.0 Years smoked: 40 Smoking pack-years: 40.00 Smoking status: Current every day smoker Tobacco type: cigarettes Alcohol intake: never Substance use: never Substance use type: does not use Living arrangements: with family Spiritual care concerns: No Anes - Eval Final PreProcedure Day of Procedure 01/02/25 08:35 Patient weight: overweight Heart: regular rate and rhythm Lungs: clear to auscultation Airway: Mallampati scale class II Neurological: alert and oriented Last oral intake: >/= 8 hours ASA classification: II Emergent: no Anesthetic plan: proceed Anesthesia type and monitoring: general GIVS and standard monitoring Results Review: All pre-operative results and documents have been reviewed as part of the pre-operative evaluation. Informed Consent: The patient's anesthetic plan and its attendant risks and benefits were discussed with the patient/family/POA. Questions were solicited and answers provided to the satisfaction of the patient/family/POA.
[2025-01-02 08:43] VITALS: BP 110/66; PULSE 63; RESP 16; O2SAT 98
[2025-01-02 08:53] VITALS: BP 114/65; PULSE 52; RESP 18; O2SAT 98
[2025-01-02 09:03] VITALS: BP 112/69; PULSE 57; RESP 20; O2SAT 100
== END 2025-01-02 09:10 | disposition home or self-care (01) ==
PROVIDERS: PCP Family Medicine; Visit Provider Internal Medicine Gastroenterology
PROC: 0DJ08ZZ Inspection of Upper Intestinal Tract, Via Natural or Artificial Opening Endoscopic (ICD-10-PCS; CPT 43239; principal; 2025-01-02 08:15)
DX: K21.00 Gastro-esophageal reflux disease with esophagitis, without bleeding (principal); K44.9 Diaphragmatic hernia without obstruction or gangrene; F17.210 Nicotine dependence, cigarettes, uncomplicated
CPT/HCPCS: 43239; 88305; J2003; J2704; J7120

== ENCOUNTER 2025-08-07 15:44 | Outpatient (CLI) | payer OTHER, SELFPAY ==
--- NOTE | ~2025-08-07 | CT_ITS ---
CT lung screening INDICATION: Tobacco use. COMPARISON: None. TECHNIQUE: CT examination of the entire thorax without contrast was performed using low dose technique. Thin section axial, sagittal and coronal images were included to increase sensitivity for small lung nodules. FINDINGS: PULMONARY NODULES: No suspicious noncalcified pulmonary nodule. OTHER PULMONARY FINDINGS: No significant nonnodular pleural or parenchymal abnormality is noted. No emphysematous changes are present. No pathologically enlarged lymph nodes are present. Normal heart size. UPPER ABDOMEN AND PERIPHERAL SOFT TISSUE: Limited views of the upper abdomen and peripheral soft tissue demonstrated no abnormalities. OSSEOUS STRUCTURES: Bone window shows no aggressive blastic or lytic lesions. IMPRESSION: 1. Lung-RADS category 1: No nodules or definitely benign nodules. Recommendations: 1 or 2: Annual screening with low-dose CT in 12 months. 2. No emphysematous changes are present. All CT scans at this facility are performed using low dose modulation techniques as appropriate to perform exam including the following: automated exposure control; use of iterative reconstruction technique; adjustment of the mA and/or kV according to patient size (this includes techniques or standardized protocols for targeted exams where dose is matched to indication/reason for exam). Reviewed, dictated and finalized at location S. [employer]PERVISOR IMPRESSION: 1. Lung-RADS category 1: No nodules or definitely benign nodules. Recommendations: 1 or 2: Annual screening with low-dose CT in 12 months. 2. No emphysematous changes are present. All CT scans at this facility are performed using low dose modulation techniqu es as appropriate to perform exam including the following: automated exposure c ontrol; use of iterative reconstruction technique; adjustment of the mA and/or kV according to patient size (this includes techniques or standardized protocol s for targeted exams where dose is matched to indication/reason for exam).
== END 2025-08-07 15:45 | disposition home or self-care (01) ==
LOC: MICIMG 15:45
PROVIDERS: PCP Family Medicine; Visit Provider Family Medicine
DX: Z12.2 Encounter for screening for malignant neoplasm of respiratory organs (principal); Z87.891 Personal history of nicotine dependence
CPT/HCPCS: 71271